=== PATIENT | female | born 1960 | race Caucasian/White ===

== ENCOUNTER 2021-06-15 15:53 | Emergency (ER) | payer MEDICARE, MEDICAID, SELFPAY ==
[2021-06-15 16:13] VITALS: BP 174/96; PULSE 135; RESP 25; TEMP 35.7; O2SAT 98; BMI 28.2
[2021-06-15 17:08] VITALS: BP 149/90; PULSE 104; RESP 20; O2SAT 98
--- NOTE | 2021-06-15 19:12 | ED_ITS ---
HPI - Psych <Yoni Clement DO - Last Filed: 06/17/21 21:15> General Chief Complaint: Psychiatric Symptoms Stated Complaint: hallucinating Time Seen by Provider: 06/15/21 19:12 Source: patient Mode of arrival: Ambulatory History of Present Illness HPI Narrative: 61-year-old female former smoker endorses chronic alcohol abuse, recent use of methamphetamines and a recent fall with head injury. Her daughter states that today she started hallucinating a becoming paranoid and encouraged her to come to the emergency department. On arrival the patient is paranoid with pressured speech and very distrustful. She endorses auditory and visual hallucinations and is afraid people are trying to kill her. She denies any medications or mental health history. She denies any history of alcohol withdrawal. She is initially very resistant to any help from myself or other staff. Review of Systems <Yoni Clement DO - Last Filed: 06/17/21 21:15> Review of Systems Narrative: GENERAL: Denies chills, fatigue, malaise, fever, sweats. HEENT: Denies sinus pain, ear pain, sore throat, difficulty swallowing, dizziness. RESPIRATORY: Denies dyspnea, cough, wheezing, hemoptysis, sputum. CARDIOVASCULAR: Denies chest pain, palpitations, orthopnea, edema, GASTROINTESTINAL: Denies nausea, vomiting, abdominal pain, diarrhea, constipation, melena. : Denies dysuria, frequency, incontinence, hematuria, urinary retention. MUSCULOSKELETAL: denies weakness, joint pain, or bony pain SKIN: Denies rash, skin lesions, or other NEUROLOGIC: See HPI PSYCHIATRIC: See HPI 12 point review of systems is negative except for those stated above Patient History <Yoni Clement DO - Last Filed: 06/17/21 21:15> Social History Smoking Status: Former smoker Smoking Status: Former smoker alcohol intake frequency: 3 or more drinks per day Substance Use Type: methamphetamine Exam <Yoni Clement DO - Last Filed: 06/17/21 21:15> Narrative Exam Narrative: GENERAL: [61] year old patient appears stated age. She is obviously upset and paranoid, pacing, rapid pressured speech, distrustful, lacks insight, unable to be redirected HEAD: Atraumatic. Normocephalic. EYES: Pupils equal round and reactive. Extraocular motions intact. No scleral icterus. No injection or drainage. ENT: Nose without bleeding, purulent drainage. Throat without erythema, tonsillar hypertrophy or exudate. Airway patent. NECK: Trachea midline. Non tender CARDIOVASCULAR: Tachycardic but regular rhythm without murmurs, gallops, or rubs. RESPIRATORY: Clear to auscultation. Breath sounds equal bilaterally. No wheezes, rales, or rhonchi. GASTROINTESTINAL: Abdomen soft, non-tender, nondistended. EXTREMITIES: No edema or joint tenderness. BACK: Nontender without deformity or crepitance. No flank tenderness. NEURO: Cranial nerves 2-12 grossly intact SKIN: No rash or erythema of visible areas Initial Vital Signs Initial Vital Signs: Vital Signs Temperature 96.3 F L 06/15/21 16:13 Pulse Rate 135 H 06/15/21 16:13 Respiratory Rate 25 H 06/15/21 16:13 Blood Pressure 174/96 H 06/15/21 16:13 Pulse Oximetry 98 06/15/21 16:13 <Lorenzo Millard MD - Last Filed: 06/16/21 20:02> Initial Vital Signs Initial Vital Signs: Vital Signs Temperature 96.3 F L 06/15/21 16:13 Pulse Rate 135 H 06/15/21 16:13 Respiratory Rate 25 H 06/15/21 16:13 Blood Pressure 174/96 H 06/15/21 16:13 Pulse Oximetry 98 06/15/21 16:13 <Stephan Toth DO - Last Filed: 06/17/21 11:13> Initial Vital Signs Initial Vital Signs: Vital Signs Temperature 96.3 F L 06/15/21 16:13 Pulse Rate 135 H 06/15/21 16:13 Respiratory Rate 25 H 06/15/21 16:13 Blood Pressure 174/96 H 06/15/21 16:13 Pulse Oximetry 98 06/15/21 16:13 Course <Yoni Clement DO - Last Filed: 06/17/21 21:15> Course Course Narrative: Patient eventually able to be spoken with at the bedside, she agrees to take an olanzapine which helped her significantly. She was able to hold a discussion afterwards and was open to our workup, she states she understands we are trying to help her. 0545 - patient is much more alert. Speaking clearly and walking. She states she is starting to feel a bit shakey and is concerned that she is starting to withdrawl. She denies suicidal or homicidal ideation. She no longer is having visual or auditory hallucinations. She is sorry and regretful. She asked for help with detox and would like to speak with social Work about going to a facility. I asked her about the likelihood that she could be and she laughed, stating that she has not been sexually active in very long time and already went through menopause. When the lab called about the positive urine the certified medication technician states it was a very weakly positive finding if at all. Orders Ordered: Discontinued Medications Sodium Chloride (Normal Saline 0.9%) 1,000 mls @ 1,000 mls/hr IV BOLUS ONE Stop: 06/15/21 21:19 Last Infusion: 06/15/21 22:14 Dose: 0 mls/hr Documented by: Admin: 06/15/21 20:36 Dose: 1,000 mls/hr Documented by: JAME Lorazepam (Lorazepam 0.5 Mg Tablet) 2 mg PO NOW ONE Stop: 06/16/21 05:26 Last Admin: 06/16/21 05:35 Dose: 2 mg Documented by: JJUNTI Olanzapine (Olanzapine Odt 10 Mg Tab) 10 mg PO NOW ONE Stop: 06/15/21 19:19 Last Admin: 06/15/21 20:02 Dose: 10 mg Documented by: FLAKITO Vital Signs Vital signs: Vital Signs - 8 hr 06/17/21 07:46 Pulse Rate 94 H Respiratory Rate 14 Blood Pressure 134/84 Pulse Oximetry 96 <Lorenzo Millard MD - Last Filed: 06/16/21 20:02> Course Course Narrative: Patient eventually able to be spoken with at the bedside, she agrees to take an olanzapine which helped her significantly. She was able to hold a discussion afterwards and was open to our workup, she states she understands we are trying to help her. 0545 - patient is much more alert. Speaking clearly and walking. She states she is starting to feel a bit shakey and is concerned that she is starting to withdrawl. She denies suicidal or homicidal ideation. She no longer is having visual or auditory hallucinations. She is sorry and regretful. She asked for help with detox and would like to speak with social Work about going to a facility. I asked her about the likelihood that she could be and she laughed, stating that she has not been sexually active in very long time and already went through menopause. When the lab called about the positive urine the certified medication technician states it was a very weakly positive finding if at all. I assumed care from Dr. Clement at change of shift. The patient's care was reviewed. I entered the patient shortly after change of shift. She made a of couple remarks that did not correspond with the conversation at tried initiate. She then rolled over went back to sleep. She basically slept for rest of the shift, and was left undisturbed. branch services manager were consulted. There are no beds for alcohol/drug detox immediately available. Care will be transitioned back to Dr. Clement for ongoing care at the next shift. Ari 06/16/21@1999. Orders Ordered: Discontinued Medications Sodium Chloride (Normal Saline 0.9%) 1,000 mls @ 1,000 mls/hr IV BOLUS ONE Stop: 06/15/21 21:19 Last Infusion: 06/15/21 22:14 Dose: 0 mls/hr Documented by: Admin: 06/15/21 20:36 Dose: 1,000 mls/hr Documented by: JAME Lorazepam (Lorazepam 0.5 Mg Tablet) 2 mg PO NOW ONE Stop: 06/16/21 05:26 Last Admin: 06/16/21 05:35 Dose: 2 mg Documented by: DIVINE Olanzapine (Olanzapine Odt 10 Mg Tab) 10 mg PO NOW ONE Stop: 06/15/21 19:19 Last Admin: 06/15/21 20:02 Dose: 10 mg Documented by: FLAKITO Vital Signs Vital signs: Vital Signs - 8 hr 06/17/21 07:46 Pulse Rate 94 H Respiratory Rate 14 Blood Pressure 134/84 Pulse Oximetry 96 <Stephan Toth DO - Last Filed: 06/17/21 11:13> Orders Ordered: Discontinued Medications Sodium Chloride (Normal Saline 0.9%) 1,000 mls @ 1,000 mls/hr IV BOLUS ONE Stop: 06/15/21 21:19 Last Infusion: 06/15/21 22:14 Dose: 0 mls/hr Documented by: Admin: 06/15/21 20:36 Dose: 1,000 mls/hr Documented by: JAME Lorazepam (Lorazepam 0.5 Mg Tablet) 2 mg PO NOW ONE Stop: 06/16/21 05:26 Last Admin: 06/16/21 05:35 Dose: 2 mg Documented by: DIVINE Olanzapine (Olanzapine Odt 10 Mg Tab) 10 mg PO NOW ONE Stop: 06/15/21 19:19 Last Admin: 06/15/21 20:02 Dose: 10 mg Documented by: FLAKITO Vital Signs Vital signs: Vital Signs - 8 hr 06/17/21 07:46 Pulse Rate 94 H Respiratory Rate 14 Blood Pressure 134/84 Pulse Oximetry 96 MDM - Psych <Yoni Clement DO - Last Filed: 06/17/21 21:15> Lab Data Result diagrams: 06/15/21 19:55 06/15/21 19:55 Labs: Lab Results 06/15/21 06/15/21 06/15/21 Range/Units 19:08 19:08 19:08 WBC (4.5-11.0) X10^3/uL RBC (4.0-5.2) X10^6/uL Hgb (12.0-16.0) g/dL Hct (36-46) % MCV (80-100) fL MCH (26-34) PG MCHC (30-36) % RDW (11.6-14.8) % Plt Count (150-400) X10^3/uL Neut % (Auto) (50-75) % Lymph % (Auto) (25-40) % [place] % (Auto) (3-14) % Eos % (Auto) (2-4) % Baso % (Auto) (0-2) % Neut # (Auto) (9591-4492) /uL Lymph # (Auto) (8270-0473) /uL [place] # (Auto) (0-900) /uL Eos # (Auto) (0-450) /uL Baso # (Auto) (0-100) /uL Sodium (137-145) mmol/L Potassium (3.4-5.1) mmol/L Chloride (98-107) mmol/L Carbon Dioxide (22-32) mmol/L BUN (7-17) mg/dL Creatinine (0.52-1.04) mg/dL Estimated GFR (>60) mL/min BUN/Creatinine Ratio (6-22) Glucose (70-100) mg/dL Calcium (8.4-10.2) mg/dL Total Bilirubin (0.2-1.3) mg/dL AST (14-36) IU/L ALT (<35) IU/L Alkaline Phosphatase (38-126) U/L Total Protein (6.3-8.2) g/dL Albumin (3.5-5.0) g/dL Globulin (1.7-4.1) g/dL Albumin/Globulin Ratio (1.0-2.8) TSH (0.47-4.68) uIU/mL Free T4 (0.78-2.19) ng/dL HCG, Quant mIU/mL Urine Color Yellow Urine Appearance Slightly cloudy Urine pH 5.0 (4.5-8.0) Ur Specific [place] >=1.030 H (1.000-1.035) Urine Protein 1+ H (Negative) Urine Glucose (UA) Negative (Negative) g/dL Urine Ketones 2+ H (NEGATIVE) Urine Occult Blood Trace-lysed (Negative) Urine Nitrate Negative (Negative) Urine Bilirubin 2+ H (NEGATIVE) Ur Bilirubin Confirm Negative (Negative) Urine Urobilinogen 1.0 (0.2) E.U./dL Ur Leukocyte Esterase 1+ H (NEGATIVE) Urine RBC 0-1/hpf (0-5/HPF) Urine WBC 5-10/hpf H (0-5/HPF) Ur Squamous Epith Cells 1-5 /hpf (0-5/HPF) Amorphous Sediment 1+ Urine Bacteria Occasional (0-1) (None) Hyaline Casts 1-5/lpf (None) Granular Casts 1-5/lpf (None) Urine Mucus 2+ H (Negative) Ur Culture Indicated? Specimen cultured Urine Test Positive H (Negative) Salicylates (<20) mg/dL U Opiates 300ng/mL cut Negative (Negative) Ur Oxycodone Screen Negative (Negative) Urine Methadone Screen Negative (Negative) Acetaminophen (10-30) ug/mL Ur Barbiturates Screen Negative (Negative) U Tricyclic Antidepress Negative (Negative) Ur Phencyclidine Scrn Negative (Negative) Ur Amphetamines Screen Positive H (Negative) U Methamphetamines Scrn Positive H (Negative) Ur MDMA Scrn (Ecstasy) Negative (Negative) U Benzodiazepines Scrn Negative (Negative) Urine Cocaine Screen Negative (Negative) U Marijuana (THC) Screen Negative (Negative) Ethyl Alcohol ( - 10) mg/dL 06/15/21 06/15/21 06/15/21 Range/Units 19:55 19:55 19:55 WBC 6.0 (4.5-11.0) X10^3/uL RBC 4.84 (4.0-5.2) X10^6/uL Hgb 14.6 (12.0-16.0) g/dL Hct 42.0 (36-46) % MCV 86.8 (80-100) fL MCH 30.2 (26-34) PG MCHC 34.7 (30-36) % RDW 13.4 (11.6-14.8) % Plt Count 305 (150-400) X10^3/uL Neut % (Auto) 70.7 (50-75) % Lymph % (Auto) 20.4 L (25-40) % [place] % (Auto) 7.0 (3-14) % Eos % (Auto) 1.0 L (2-4) % Baso % (Auto) 0.9 (0-2) % Neut # (Auto) 4200 (2946-1495) /uL Lymph # (Auto) 1200 (2804-3758) /uL [place] # (Auto) 400 (0-900) /uL Eos # (Auto) 100 (0-450) /uL Baso # (Auto) 100 (0-100) /uL Sodium 140 (137-145) mmol/L Potassium 4.0 (3.4-5.1) mmol/L Chloride 103 (98-107) mmol/L Carbon Dioxide 21 L (22-32) mmol/L BUN 14 (7-17) mg/dL Creatinine 0.75 (0.52-1.04) mg/dL Estimated GFR > 60.0 (>60) mL/min BUN/Creatinine Ratio 18.7 (6-22) Glucose 93 (70-100) mg/dL Calcium 9.8 (8.4-10.2) mg/dL Total Bilirubin 1.5 H (0.2-1.3) mg/dL AST 49 H (14-36) IU/L ALT 44 H (<35) IU/L Alkaline Phosphatase 65 (38-126) U/L Total Protein 9.3 H (6.3-8.2) g/dL Albumin 5.2 H (3.5-5.0) g/dL Globulin 4.1 (1.7-4.1) g/dL Albumin/Globulin Ratio 1.3 (1.0-2.8) TSH 2.24 (0.47-4.68) uIU/mL Free T4 1.81 (0.78-2.19) ng/dL HCG, Quant 3.9 mIU/mL Urine Color Urine Appearance Urine pH (4.5-8.0) Ur Specific [place] (1.000-1.035) Urine Protein (Negative) Urine Glucose (UA) (Negative) g/dL Urine Ketones (NEGATIVE) Urine Occult Blood (Negative) Urine Nitrate (Negative) Urine Bilirubin (NEGATIVE) Ur Bilirubin Confirm (Negative) Urine Urobilinogen (0.2) E.U./dL Ur Leukocyte Esterase (NEGATIVE) Urine RBC (0-5/HPF) Urine WBC (0-5/HPF) Ur Squamous Epith Cells (0-5/HPF) Amorphous Sediment Urine Bacteria (None) Hyaline Casts (None) Granular Casts (None) Urine Mucus (Negative) Ur Culture Indicated? Urine Test (Negative) Salicylates < 1.0 (<20) mg/dL U Opiates 300ng/mL cut (Negative) Ur Oxycodone Screen (Negative) Urine Methadone Screen (Negative) Acetaminophen < 10 (10-30) ug/mL Ur Barbiturates Screen (Negative) U Tricyclic Antidepress (Negative) Ur Phencyclidine Scrn (Negative) Ur Amphetamines Screen (Negative) U Methamphetamines Scrn (Negative) Ur MDMA Scrn (Ecstasy) (Negative) U Benzodiazepines Scrn (Negative) Urine Cocaine Screen (Negative) U Marijuana (THC) Screen (Negative) Ethyl Alcohol < 10 ( - 10) mg/dL 06/16/21 06/16/21 Range/Units 23:58 23:58 WBC (4.5-11.0) X10^3/uL RBC (4.0-5.2) X10^6/uL Hgb (12.0-16.0) g/dL Hct (36-46) % MCV (80-100) fL MCH (26-34) PG MCHC (30-36) % RDW (11.6-14.8) % Plt Count (150-400) X10^3/uL Neut % (Auto) (50-75) % Lymph % (Auto) (25-40) % [place] % (Auto) (3-14) % Eos % (Auto) (2-4) % Baso % (Auto) (0-2) % Neut # (Auto) (9156-0109) /uL Lymph # (Auto) (9007-7122) /uL [place] # (Auto) (0-900) /uL Eos # (Auto) (0-450) /uL Baso # (Auto) (0-100) /uL Sodium (137-145) mmol/L Potassium (3.4-5.1) mmol/L Chloride (98-107) mmol/L Carbon Dioxide (22-32) mmol/L BUN (7-17) mg/dL Creatinine (0.52-1.04) mg/dL Estimated GFR (>60) mL/min BUN/Creatinine Ratio (6-22) Glucose (70-100) mg/dL Calcium (8.4-10.2) mg/dL Total Bilirubin (0.2-1.3) mg/dL AST (14-36) IU/L ALT (<35) IU/L Alkaline Phosphatase (38-126) U/L Total Protein (6.3-8.2) g/dL Albumin (3.5-5.0) g/dL Globulin (1.7-4.1) g/dL Albumin/Globulin Ratio (1.0-2.8) TSH (0.47-4.68) uIU/mL Free T4 (0.78-2.19) ng/dL HCG, Quant mIU/mL Urine Color Urine Appearance Urine pH (4.5-8.0) Ur Specific [place] (1.000-1.035) Urine Protein (Negative) Urine Glucose (UA) (Negative) g/dL Urine Ketones (NEGATIVE) Urine Occult Blood (Negative) Urine Nitrate (Negative) Urine Bilirubin (NEGATIVE) Ur Bilirubin Confirm Negative (Negative) Urine Urobilinogen (0.2) E.U./dL Ur Leukocyte Esterase (NEGATIVE) Urine RBC None seen (0-5/HPF) Urine WBC 0-1/hpf (0-5/HPF) Ur Squamous Epith Cells 1-5 /hpf (0-5/HPF) Amorphous Sediment Urine Bacteria Occasional (0-1) (None) Hyaline Casts (None) Granular Casts (None) Urine Mucus 3+ H (Negative) Ur Culture Indicated? Specimen cultured Urine Test (Negative) Salicylates (<20) mg/dL U Opiates 300ng/mL cut (Negative) Ur Oxycodone Screen (Negative) Urine Methadone Screen (Negative) Acetaminophen (10-30) ug/mL Ur Barbiturates Screen (Negative) U Tricyclic Antidepress (Negative) Ur Phencyclidine Scrn (Negative) Ur Amphetamines Screen (Negative) U Methamphetamines Scrn (Negative) Ur MDMA Scrn (Ecstasy) (Negative) U Benzodiazepines Scrn (Negative) Urine Cocaine Screen (Negative) U Marijuana (THC) Screen (Negative) Ethyl Alcohol ( - 10) mg/dL Point of Care Testing Test Results Positive Urine Dip Bedside Urine Glucose Negative Bedside Urine Bilirubin + 1 Bedside Urine Ketone +++ 80 Urine Specific [place] 1.030 Bedside Urine Occult Blood - Negative Bedside Urine pH 6.0 Bedside Urine Protein +/- 15 Bedside Urine Urobilinogen +/- 1mg Bedside Urine Nitrite - Negative Bedside Urine Leukocytes - Negative Esterase MDM Narrative Medical decision making narrative: 0436 - patient received back in sign out. She had apparently slept most of the day and did not interact with Dr. Millard. She was awake briefly earlier in this shift, but due to some critical patients I did not speak with her. She is now sleeping again and has been for a few hours. Social work note from yesterday notes that all facilities locally are currently full however, [facility] will accept phone interview on Friday for intake on Friday. <Lorenzo Millard MD - Last Filed: 06/16/21 20:02> Lab Data Labs: Lab Results 06/15/21 06/15/21 06/15/21 Range/Units 19:08 19:08 19:08 WBC (4.5-11.0) X10^3/uL RBC (4.0-5.2) X10^6/uL Hgb (12.0-16.0) g/dL Hct (36-46) % MCV (80-100) fL MCH (26-34) PG MCHC (30-36) % RDW (11.6-14.8) % Plt Count (150-400) X10^3/uL Neut % (Auto) (50-75) % Lymph % (Auto) (25-40) % [place] % (Auto) (3-14) % Eos % (Auto) (2-4) % Baso % (Auto) (0-2) % Neut # (Auto) (6529-0112) /uL Lymph # (Auto) (0643-8946) /uL [place] # (Auto) (0-900) /uL Eos # (Auto) (0-450) /uL Baso # (Auto) (0-100) /uL Sodium (137-145) mmol/L Potassium (3.4-5.1) mmol/L Chloride (98-107) mmol/L Carbon Dioxide (22-32) mmol/L BUN (7-17) mg/dL Creatinine (0.52-1.04) mg/dL Estimated GFR (>60) mL/min BUN/Creatinine Ratio (6-22) Glucose (70-100) mg/dL Calcium (8.4-10.2) mg/dL Total Bilirubin (0.2-1.3) mg/dL AST (14-36) IU/L ALT (<35) IU/L Alkaline Phosphatase (38-126) U/L Total Protein (6.3-8.2) g/dL Albumin (3.5-5.0) g/dL Globulin (1.7-4.1) g/dL Albumin/Globulin Ratio (1.0-2.8) TSH (0.47-4.68) uIU/mL Free T4 (0.78-2.19) ng/dL HCG, Quant mIU/mL Urine Color Yellow Urine Appearance Slightly cloudy Urine pH 5.0 (4.5-8.0) Ur Specific [place] >=1.030 H (1.000-1.035) Urine Protein 1+ H (Negative) Urine Glucose (UA) Negative (Negative) g/dL Urine Ketones 2+ H (NEGATIVE) Urine Occult Blood Trace-lysed (Negative) Urine Nitrate Negative (Negative) Urine Bilirubin 2+ H (NEGATIVE) Ur Bilirubin Confirm Negative (Negative) Urine Urobilinogen 1.0 (0.2) E.U./dL Ur Leukocyte Esterase 1+ H (NEGATIVE) Urine RBC 0-1/hpf (0-5/HPF) Urine WBC 5-10/hpf H (0-5/HPF) Ur Squamous Epith Cells 1-5 /hpf (0-5/HPF) Amorphous Sediment 1+ Urine Bacteria Occasional (0-1) (None) Hyaline Casts 1-5/lpf (None) Granular Casts 1-5/lpf (None) Urine Mucus 2+ H (Negative) Ur Culture Indicated? Specimen cultured Urine Test Positive H (Negative) Salicylates (<20) mg/dL U Opiates 300ng/mL cut Negative (Negative) Ur Oxycodone Screen Negative (Negative) Urine Methadone Screen Negative (Negative) Acetaminophen (10-30) ug/mL Ur Barbiturates Screen Negative (Negative) U Tricyclic Antidepress Negative (Negative) Ur Phencyclidine Scrn Negative (Negative) Ur Amphetamines Screen Positive H (Negative) U Methamphetamines Scrn Positive H (Negative) Ur MDMA Scrn (Ecstasy) Negative (Negative) U Benzodiazepines Scrn Negative (Negative) Urine Cocaine Screen Negative (Negative) U Marijuana (THC) Screen Negative (Negative) Ethyl Alcohol ( - 10) mg/dL 06/15/21 06/15/21 06/15/21 Range/Units 19:55 19:55 19:55 WBC 6.0 (4.5-11.0) X10^3/uL RBC 4.84 (4.0-5.2) X10^6/uL Hgb 14.6 (12.0-16.0) g/dL Hct 42.0 (36-46) % MCV 86.8 (80-100) fL MCH 30.2 (26-34) PG MCHC 34.7 (30-36) % RDW 13.4 (11.6-14.8) % Plt Count 305 (150-400) X10^3/uL Neut % (Auto) 70.7 (50-75) % Lymph % (Auto) 20.4 L (25-40) % [place] % (Auto) 7.0 (3-14) % Eos % (Auto) 1.0 L (2-4) % Baso % (Auto) 0.9 (0-2) % Neut # (Auto) 4200 (0286-6404) /uL Lymph # (Auto) 1200 (2422-5905) /uL [place] # (Auto) 400 (0-900) /uL Eos # (Auto) 100 (0-450) /uL Baso # (Auto) 100 (0-100) /uL Sodium 140 (137-145) mmol/L Potassium 4.0 (3.4-5.1) mmol/L Chloride 103 (98-107) mmol/L Carbon Dioxide 21 L (22-32) mmol/L BUN 14 (7-17) mg/dL Creatinine 0.75 (0.52-1.04) mg/dL Estimated GFR > 60.0 (>60) mL/min BUN/Creatinine Ratio 18.7 (6-22) Glucose 93 (70-100) mg/dL Calcium 9.8 (8.4-10.2) mg/dL Total Bilirubin 1.5 H (0.2-1.3) mg/dL AST 49 H (14-36) IU/L ALT 44 H (<35) IU/L Alkaline Phosphatase 65 (38-126) U/L Total Protein 9.3 H (6.3-8.2) g/dL Albumin 5.2 H (3.5-5.0) g/dL Globulin 4.1 (1.7-4.1) g/dL Albumin/Globulin Ratio 1.3 (1.0-2.8) TSH 2.24 (0.47-4.68) uIU/mL Free T4 1.81 (0.78-2.19) ng/dL HCG, Quant 3.9 mIU/mL Urine Color Urine Appearance Urine pH (4.5-8.0) Ur Specific [place] (1.000-1.035) Urine Protein (Negative) Urine Glucose (UA) (Negative) g/dL Urine Ketones (NEGATIVE) Urine Occult Blood (Negative) Urine Nitrate (Negative) Urine Bilirubin (NEGATIVE) Ur Bilirubin Confirm (Negative) Urine Urobilinogen (0.2) E.U./dL Ur Leukocyte Esterase (NEGATIVE) Urine RBC (0-5/HPF) Urine WBC (0-5/HPF) Ur Squamous Epith Cells (0-5/HPF) Amorphous Sediment Urine Bacteria (None) Hyaline Casts (None) Granular Casts (None) Urine Mucus (Negative) Ur Culture Indicated? Urine Test (Negative) Salicylates < 1.0 (<20) mg/dL U Opiates 300ng/mL cut (Negative) Ur Oxycodone Screen (Negative) Urine Methadone Screen (Negative) Acetaminophen < 10 (10-30) ug/mL Ur Barbiturates Screen (Negative) U Tricyclic Antidepress (Negative) Ur Phencyclidine Scrn (Negative) Ur Amphetamines Screen (Negative) U Methamphetamines Scrn (Negative) Ur MDMA Scrn (Ecstasy) (Negative) U Benzodiazepines Scrn (Negative) Urine Cocaine Screen (Negative) U Marijuana (THC) Screen (Negative) Ethyl Alcohol < 10 ( - 10) mg/dL 06/16/21 06/16/21 Range/Units 23:58 23:58 WBC (4.5-11.0) X10^3/uL RBC (4.0-5.2) X10^6/uL Hgb (12.0-16.0) g/dL Hct (36-46) % MCV (80-100) fL MCH (26-34) PG MCHC (30-36) % RDW (11.6-14.8) % Plt Count (150-400) X10^3/uL Neut % (Auto) (50-75) % Lymph % (Auto) (25-40) % [place] % (Auto) (3-14) % Eos % (Auto) (2-4) % Baso % (Auto) (0-2) % Neut # (Auto) (7859-1855) /uL Lymph # (Auto) (4287-0434) /uL [place] # (Auto) (0-900) /uL Eos # (Auto) (0-450) /uL Baso # (Auto) (0-100) /uL Sodium (137-145) mmol/L Potassium (3.4-5.1) mmol/L Chloride (98-107) mmol/L Carbon Dioxide (22-32) mmol/L BUN (7-17) mg/dL Creatinine (0.52-1.04) mg/dL Estimated GFR (>60) mL/min BUN/Creatinine Ratio (6-22) Glucose (70-100) mg/dL Calcium (8.4-10.2) mg/dL Total Bilirubin (0.2-1.3) mg/dL AST (14-36) IU/L ALT (<35) IU/L Alkaline Phosphatase (38-126) U/L Total Protein (6.3-8.2) g/dL Albumin (3.5-5.0) g/dL Globulin (1.7-4.1) g/dL Albumin/Globulin Ratio (1.0-2.8) TSH (0.47-4.68) uIU/mL Free T4 (0.78-2.19) ng/dL HCG, Quant mIU/mL Urine Color Urine Appearance Urine pH (4.5-8.0) Ur Specific [place] (1.000-1.035) Urine Protein (Negative) Urine Glucose (UA) (Negative) g/dL Urine Ketones (NEGATIVE) Urine Occult Blood (Negative) Urine Nitrate (Negative) Urine Bilirubin (NEGATIVE) Ur Bilirubin Confirm Negative (Negative) Urine Urobilinogen (0.2) E.U./dL Ur Leukocyte Esterase (NEGATIVE) Urine RBC None seen (0-5/HPF) Urine WBC 0-1/hpf (0-5/HPF) Ur Squamous Epith Cells 1-5 /hpf (0-5/HPF) Amorphous Sediment Urine Bacteria Occasional (0-1) (None) Hyaline Casts (None) Granular Casts (None) Urine Mucus 3+ H (Negative) Ur Culture Indicated? Specimen cultured Urine Test (Negative) Salicylates (<20) mg/dL U Opiates 300ng/mL cut (Negative) Ur Oxycodone Screen (Negative) Urine Methadone Screen (Negative) Acetaminophen (10-30) ug/mL Ur Barbiturates Screen (Negative) U Tricyclic Antidepress (Negative) Ur Phencyclidine Scrn (Negative) Ur Amphetamines Screen (Negative) U Methamphetamines Scrn (Negative) Ur MDMA Scrn (Ecstasy) (Negative) U Benzodiazepines Scrn (Negative) Urine Cocaine Screen (Negative) U Marijuana (THC) Screen (Negative) Ethyl Alcohol ( - 10) mg/dL Point of Care Testing Test Results Positive Urine Dip Bedside Urine Glucose Negative Bedside Urine Bilirubin + 1 Bedside Urine Ketone +++ 80 Urine Specific [place] 1.030 Bedside Urine Occult Blood - Negative Bedside Urine pH 6.0 Bedside Urine Protein +/- 15 Bedside Urine Urobilinogen +/- 1mg Bedside Urine Nitrite - Negative Bedside Urine Leukocytes - Negative Esterase <Stephan Toth DO - Last Filed: 06/17/21 11:13> Lab Data Labs: Lab Results 06/15/21 06/15/21 06/15/21 Range/Units 19:08 19:08 19:08 WBC (4.5-11.0) X10^3/uL RBC (4.0-5.2) X10^6/uL Hgb (12.0-16.0) g/dL Hct (36-46) % MCV (80-100) fL MCH (26-34) PG MCHC (30-36) % RDW (11.6-14.8) % Plt Count (150-400) X10^3/uL Neut % (Auto) (50-75) % Lymph % (Auto) (25-40) % [place] % (Auto) (3-14) % Eos % (Auto) (2-4) % Baso % (Auto) (0-2) % Neut # (Auto) (2802-7908) /uL Lymph # (Auto) (5483-2834) /uL [place] # (Auto) (0-900) /uL Eos # (Auto) (0-450) /uL Baso # (Auto) (0-100) /uL Sodium (137-145) mmol/L Potassium (3.4-5.1) mmol/L Chloride (98-107) mmol/L Carbon Dioxide (22-32) mmol/L BUN (7-17) mg/dL Creatinine (0.52-1.04) mg/dL Estimated GFR (>60) mL/min BUN/Creatinine Ratio (6-22) Glucose (70-100) mg/dL Calcium (8.4-10.2) mg/dL Total Bilirubin (0.2-1.3) mg/dL AST (14-36) IU/L ALT (<35) IU/L Alkaline Phosphatase (38-126) U/L Total Protein (6.3-8.2) g/dL Albumin (3.5-5.0) g/dL Globulin (1.7-4.1) g/dL Albumin/Globulin Ratio (1.0-2.8) TSH (0.47-4.68) uIU/mL Free T4 (0.78-2.19) ng/dL HCG, Quant mIU/mL Urine Color Yellow Urine Appearance Slightly cloudy Urine pH 5.0 (4.5-8.0) Ur Specific [place] >=1.030 H (1.000-1.035) Urine Protein 1+ H (Negative) Urine Glucose (UA) Negative (Negative) g/dL Urine Ketones 2+ H (NEGATIVE) Urine Occult Blood Trace-lysed (Negative) Urine Nitrate Negative (Negative) Urine Bilirubin 2+ H (NEGATIVE) Ur Bilirubin Confirm Negative (Negative) Urine Urobilinogen 1.0 (0.2) E.U./dL Ur Leukocyte Esterase 1+ H (NEGATIVE) Urine RBC 0-1/hpf (0-5/HPF) Urine WBC 5-10/hpf H (0-5/HPF) Ur Squamous Epith Cells 1-5 /hpf (0-5/HPF) Amorphous Sediment 1+ Urine Bacteria Occasional (0-1) (None) Hyaline Casts 1-5/lpf (None) Granular Casts 1-5/lpf (None) Urine Mucus 2+ H (Negative) Ur Culture Indicated? Specimen cultured Urine Test Positive H (Negative) Salicylates (<20) mg/dL U Opiates 300ng/mL cut Negative (Negative) Ur Oxycodone Screen Negative (Negative) Urine Methadone Screen Negative (Negative) Acetaminophen (10-30) ug/mL Ur Barbiturates Screen Negative (Negative) U Tricyclic Antidepress Negative (Negative) Ur Phencyclidine Scrn Negative (Negative) Ur Amphetamines Screen Positive H (Negative) U Methamphetamines Scrn Positive H (Negative) Ur MDMA Scrn (Ecstasy) Negative (Negative) U Benzodiazepines Scrn Negative (Negative) Urine Cocaine Screen Negative (Negative) U Marijuana (THC) Screen Negative (Negative) Ethyl Alcohol ( - 10) mg/dL 06/15/21 06/15/21 06/15/21 Range/Units 19:55 19:55 19:55 WBC 6.0 (4.5-11.0) X10^3/uL RBC 4.84 (4.0-5.2) X10^6/uL Hgb 14.6 (12.0-16.0) g/dL Hct 42.0 (36-46) % MCV 86.8 (80-100) fL MCH 30.2 (26-34) PG MCHC 34.7 (30-36) % RDW 13.4 (11.6-14.8) % Plt Count 305 (150-400) X10^3/uL Neut % (Auto) 70.7 (50-75) % Lymph % (Auto) 20.4 L (25-40) % [place] % (Auto) 7.0 (3-14) % Eos % (Auto) 1.0 L (2-4) % Baso % (Auto) 0.9 (0-2) % Neut # (Auto) 4200 (9711-9537) /uL Lymph # (Auto) 1200 (0038-5682) /uL [place] # (Auto) 400 (0-900) /uL Eos # (Auto) 100 (0-450) /uL Baso # (Auto) 100 (0-100) /uL Sodium 140 (137-145) mmol/L Potassium 4.0 (3.4-5.1) mmol/L Chloride 103 (98-107) mmol/L Carbon Dioxide 21 L (22-32) mmol/L BUN 14 (7-17) mg/dL Creatinine 0.75 (0.52-1.04) mg/dL Estimated GFR > 60.0 (>60) mL/min BUN/Creatinine Ratio 18.7 (6-22) Glucose 93 (70-100) mg/dL Calcium 9.8 (8.4-10.2) mg/dL Total Bilirubin 1.5 H (0.2-1.3) mg/dL AST 49 H (14-36) IU/L ALT 44 H (<35) IU/L Alkaline Phosphatase 65 (38-126) U/L Total Protein 9.3 H (6.3-8.2) g/dL Albumin 5.2 H (3.5-5.0) g/dL Globulin 4.1 (1.7-4.1) g/dL Albumin/Globulin Ratio 1.3 (1.0-2.8) TSH 2.24 (0.47-4.68) uIU/mL Free T4 1.81 (0.78-2.19) ng/dL HCG, Quant 3.9 mIU/mL Urine Color Urine Appearance Urine pH (4.5-8.0) Ur Specific [place] (1.000-1.035) Urine Protein (Negative) Urine Glucose (UA) (Negative) g/dL Urine Ketones (NEGATIVE) Urine Occult Blood (Negative) Urine Nitrate (Negative) Urine Bilirubin (NEGATIVE) Ur Bilirubin Confirm (Negative) Urine Urobilinogen (0.2) E.U./dL Ur Leukocyte Esterase (NEGATIVE) Urine RBC (0-5/HPF) Urine WBC (0-5/HPF) Ur Squamous Epith Cells (0-5/HPF) Amorphous Sediment Urine Bacteria (None) Hyaline Casts (None) Granular Casts (None) Urine Mucus (Negative) Ur Culture Indicated? Urine Test (Negative) Salicylates < 1.0 (<20) mg/dL U Opiates 300ng/mL cut (Negative) Ur Oxycodone Screen (Negative) Urine Methadone Screen (Negative) Acetaminophen < 10 (10-30) ug/mL Ur Barbiturates Screen (Negative) U Tricyclic Antidepress (Negative) Ur Phencyclidine Scrn (Negative) Ur Amphetamines Screen (Negative) U Methamphetamines Scrn (Negative) Ur MDMA Scrn (Ecstasy) (Negative) U Benzodiazepines Scrn (Negative) Urine Cocaine Screen (Negative) U Marijuana (THC) Screen (Negative) Ethyl Alcohol < 10 ( - 10) mg/dL 06/16/21 06/16/21 Range/Units 23:58 23:58 WBC (4.5-11.0) X10^3/uL RBC (4.0-5.2) X10^6/uL Hgb (12.0-16.0) g/dL Hct (36-46) % MCV (80-100) fL MCH (26-34) PG MCHC (30-36) % RDW (11.6-14.8) % Plt Count (150-400) X10^3/uL Neut % (Auto) (50-75) % Lymph % (Auto) (25-40) % [place] % (Auto) (3-14) % Eos % (Auto) (2-4) % Baso % (Auto) (0-2) % Neut # (Auto) (1632-2736) /uL Lymph # (Auto) (4432-6529) /uL [place] # (Auto) (0-900) /uL Eos # (Auto) (0-450) /uL Baso # (Auto) (0-100) /uL Sodium (137-145) mmol/L Potassium (3.4-5.1) mmol/L Chloride (98-107) mmol/L Carbon Dioxide (22-32) mmol/L BUN (7-17) mg/dL Creatinine (0.52-1.04) mg/dL Estimated GFR (>60) mL/min BUN/Creatinine Ratio (6-22) Glucose (70-100) mg/dL Calcium (8.4-10.2) mg/dL Total Bilirubin (0.2-1.3) mg/dL AST (14-36) IU/L ALT (<35) IU/L Alkaline Phosphatase (38-126) U/L Total Protein (6.3-8.2) g/dL Albumin (3.5-5.0) g/dL Globulin (1.7-4.1) g/dL Albumin/Globulin Ratio (1.0-2.8) TSH (0.47-4.68) uIU/mL Free T4 (0.78-2.19) ng/dL HCG, Quant mIU/mL Urine Color Urine Appearance Urine pH (4.5-8.0) Ur Specific [place] (1.000-1.035) Urine Protein (Negative) Urine Glucose (UA) (Negative) g/dL Urine Ketones (NEGATIVE) Urine Occult Blood (Negative) Urine Nitrate (Negative) Urine Bilirubin (NEGATIVE) Ur Bilirubin Confirm Negative (Negative) Urine Urobilinogen (0.2) E.U./dL Ur Leukocyte Esterase (NEGATIVE) Urine RBC None seen (0-5/HPF) Urine WBC 0-1/hpf (0-5/HPF) Ur Squamous Epith Cells 1-5 /hpf (0-5/HPF) Amorphous Sediment Urine Bacteria Occasional (0-1) (None) Hyaline Casts (None) Granular Casts (None) Urine Mucus 3+ H (Negative) Ur Culture Indicated? Specimen cultured Urine Test (Negative) Salicylates (<20) mg/dL U Opiates 300ng/mL cut (Negative) Ur Oxycodone Screen (Negative) Urine Methadone Screen (Negative) Acetaminophen (10-30) ug/mL Ur Barbiturates Screen (Negative) U Tricyclic Antidepress (Negative) Ur Phencyclidine Scrn (Negative) Ur Amphetamines Screen (Negative) U Methamphetamines Scrn (Negative) Ur MDMA Scrn (Ecstasy) (Negative) U Benzodiazepines Scrn (Negative) Urine Cocaine Screen (Negative) U Marijuana (THC) Screen (Negative) Ethyl Alcohol ( - 10) mg/dL Point of Care Testing Test Results Positive Urine Dip Bedside Urine Glucose Negative Bedside Urine Bilirubin + 1 Bedside Urine Ketone +++ 80 Urine Specific [place] 1.030 Bedside Urine Occult Blood - Negative Bedside Urine pH 6.0 Bedside Urine Protein +/- 15 Bedside Urine Urobilinogen +/- 1mg Bedside Urine Nitrite - Negative Bedside Urine Leukocytes - Negative Esterase MDM Narrative Medical decision making narrative: 0436 - patient received back in sign out. She had apparently slept most of the day and did not interact with Dr. Millard. She was awake briefly earlier in this shift, but due to some critical patients I did not speak with her. She is now sleeping again and has been for a few hours. Social work note from yesterday notes that all facilities locally are currently full however, [facility] will accept phone interview on Friday for intake on Friday. Dr toth: Received turnover. Reviewed patient's history and physical exam. Patient awaiting placement for voluntary detox for alcohol. I did have a discussion with the patient. She is alert oriented x3. GCS 15. In my opinion has capacity to make decisions. Not clinically intoxicated. Patient states she would like to be discharged home. She states she has a and son at home that she needs to check on. She initially asked for ?medications ?it for use at home however I informed her that it is not my practice to discharge home someone with medications such as benzodiazepine in this situation. Patient states that yesterday she was visiting some friends who ?did some things that I have never done before ?she states that she would never do this again. I suspect that this was the methamphetamine that was in her system which does certainly explain her presenting symptoms. Will discharge patient home with resources for alcohol treatment facilities. She was given return precautions. She expressed understanding and agreement. Discharge Plan Departure Patient Disposition: Home Clinical Impression: Alcohol abuse, Methamphetamine use Instructions: DI for Alcohol Use Disorder Activity Restrictions/Additional Instructions: I do recommend that you use the resources that are provided to help with your alcohol use issues. I also recommend you contact your primary doctor for a follow-up. Return to the emergency department for any new or worsening symp toms.
[2021-06-15 19:14] LABS: Bilirubin Urine UA 2+ (NEGATIVE); Color Urine UA YELLOW; Glucose Urine UA NEGATIVE (Negative); Ketones Urine UA 2+ (NEGATIVE); Leukocyte Esterase Urine UA 1+ (NEGATIVE); Nitrite Urine UA NEGATIVE (Negative); Occult Blood Urine UA TRACE-LYSED (Negative); Protein Urine UA 1+ (Negative); Specific Gravity Urine UA >=1.030 (1.000-1.035)
--- NOTE | 2021-06-15 19:17 | PC.NURSE ---
Pt started to escalate in the szymanski. This COAT CHECKER responded to pt yelling for daughter. This COAT CHECKER tried to console pt and calm her down. Pt was inconsolable. This COAT CHECKER stayed with pt. Nurse attending called pt's daughter and pt spoke with her on the portable phone. Hung up on daughter. This COAT CHECKER was able to get pt to use the bathroom and provide a urine sample. Pt shouted things like 'The doctor is going to euthanize me', 'don't touch me', 'you're going to hurt me', 'I don't trust anyone here', 'you're not going to move me', 'Jacqueline is going to come get me', 'My is my power of divorce attorney', 'Ray is coming to get me'.. This patient repeated these things many times. Pt was able to get ahold of on the phone and this COAT CHECKER spoke with him briefly. , Bogdan, says that 'her (pt) daughter brought her there and I am not able to come because she (daughter) has my car.' While pt was on the phone with , this COAT CHECKER, another COAT CHECKER, and EVS moved pt on her gurney to a room due to her behavior. Pt was shown that she has her own personal bathroom. Pt went to the bathroom to have privacy so this COAT CHECKER cracked main door to room to help pt feel safe with added privacy. While this COAT CHECKER helps another pt, this pt closed door on herself. immediately aware and went to speak with pt. Pt seemed manic and still inconsolable. Upon leaving, the doctor also closed the door. Pt at the door yelling to passerby's and door remains closed for safety of herself, staff, and other patients.
[2021-06-15 19:23] LABS: Appearance Urine UA Slightly Cloudy
[2021-06-15 19:24] LABS: Amorphous Sediment Urine 1+; Bacteria Urine Occasional (0-1); Culture Indicated Urine Specimen Cultured; Granular Casts Urine 1-5/LPF; Hyaline Casts Urine 1-5/LPF; Mucus Urine 2+ (Negative); RBC Urine 0-1/HPF (0-5/HPF); Squamous Epithelial Cell Urine 1-5 /HPF (0-5/HPF); WBC Urine 5-10/HPF (0-5/HPF)
[2021-06-15 19:27] LABS: Ictotest Urine Negative (Negative)
[2021-06-15 19:34] LABS: Pregnancy Test Urine Positive (Negative)
[2021-06-15 19:37] LABS: UR Morphine/Opiate cutoff 300 Negative (Negative); Ur Creatinine Normal (Normal); Ur Specific Gravity Normal (Normal); Urine Amphetamines Positive (Negative); Urine Barbiturates Negative (Negative); Urine Benzodiazepines Negative (Negative); Urine Cocaine Negative (Negative); Urine MDMA Negative (Negative); Urine Methadone Negative (Negative); Urine Methamphetamines Positive (Negative); Urine Oxycodone Negative (Negative); Urine Phencyclidine Negative (Negative); Urine Tetrahydrocannabinol Negative (Negative); Urine Tricyclic Antidepressant Negative (Negative); Urine pH Normal (Normal)
[2021-06-15] MEDS: OLANZapine ODT 10 MG TAB PO (20:02)
--- NOTE | 2021-06-15 20:02 | CM.SWNOTE ---
DITCH TENDER Assessment DITCH TENDER - Screed Person Assessment DITCH TENDER/Screed Person Assessment Time Spent with Patient Start date 06/15/21 Visit Start Time 19:00 End date 06/15/21 Visit End Time 19:45 Total time Care Management spent on Observing pt for 45 min patient visit-in minutes Substance Abuse Screening Include Onset, Duration, Intensity Presenting Problem Patient presents to ED due to concern for hallucinations and paranoia induced by Methamphetamines use. Patient' s BAL level has not yet been drawn due to patient's paranoia of being poisoned and getting an IV done. Precipitating Event(s) It was reported in triage that patient did lines of methamphetamine earlier this week. Patient Strengths Patient is able to be consoled and redirected Current Behavioral Health Provider(s) Unknown at this time Include Facility, Provider, Ph. # Family Hx of Behavioral Abuse Unknown at this time Rehab Facilities? ((Date(s), Location(s) Unknown at this time ) History of Withdrawal? Seizures? Unknown at this time. Patient presents with paranoia and reported visual hallucinations and concern her head is going to explode. Longest Period of Sobriety Unknown at this time Psychosocial information & Support Patient is 61 y/o female who Systems resides in [place], [place] in [facility]. Patient has s/o and daughter as support. Patient endorses that her s/o is her DPOA. School/Work Unknown Legal Concerns Legal Matters - Outstanding Issues Unknown Mental Status Orientation (Person/Place/Time) A/O to person, self and location Stated Mood scared Affect (Congruent with Mood?) Anxious, Euphoric, labile, congruent with mood. Thought Content - Specify/Describe Patient presents with acute Obsessions, Delusions, Hallucinations paranoia with concern for being poisoned, shot and killed and the obsession with consulting for medical care with s/o who she reports is her DPOA. Patient is not trusting of most ED staff and is concerned that almost everyone here is out to get her. Patient is anxious and concerned that everyone is laughing and staring at her. Patient yells and screams when RN tries to put in an IV in patient. Thought Processes (Kxmjcmi-Vhqbzlfe-Kaac Disorganized, tangential Sypcwwol-Blbjbqcp-Pcwoupczto- Gvpcujcfghakli-Ouukyti-Daeqxcpamwyu- Thought Blocking) Speech (Aolnjx-Gjnq-Qhcfnzn-Rapid-Soft- rapid/slurred Loud-Pressured) Motor (Ugrkfv-Dkftmbvra-Zutt-Other) excessive. Patient is shaking and cannot stay still. Insight (Upob-Vvnf-Hdzl/Limited) poor/limited Judgement (Ctoe-Bbhy-Mavn/Limited) poor/limited Impulse Control (Adequate-Impaired) impaired Memory (Buxfirkag-Fqalga-Stmjpz, impaired, not formally Impaired-Intact) assessed Concentration (Intact-Impaired) impaired Attention (Intact-Impaired) impaired Behavior (Appropriate-Inappropriate) inappropriate. Patient is disruptive, yelling, screaming , crying with difficulty consoling self. Patient is dependent on one-on-one attention from [employer] broke worker and at times needing both to assist patient. Patient is not wanting DITCH TENDER to look at patient or speak with patient due to acute paranoia. Risk Assessment Suicidal Ideation (Plan) Unknown Homicidal Ideation (Plan) Unknown Comment Patient denies HI and SI in triage. DITCH TENDER is not able to ask patient assessment questions due to patient's distress and paranoia. Intervention Intervention DITCH TENDER observes patient while in hallway and in room 13. Patient presents with acute paranoia and anxiety. Patient' s toxicology screen is positive for Methamphetamines and Amphetamines. Patient's BAL is pending at this time. Patient was brought in by daughter due to patient's increasing paranoia. Patient requests to speak with s/o and daughter on the phone who encourage patient to stay at the hospital. Patient continues to repeat concern for being poisoned, harmed, taken away, shot or put in danger. Patient is able to build rapport and trust with [employer] and RN but has not been able to conduct conversation and rapport with anyone else. Patient presents with some erratic and inconsolable behaviors. It is the opinion of this DITCH TENDER that at this time patient is not safe for d/c. Patient to receive further ED medical evaluation from ED provider Dr. Clement. Perhaps patient would benefit from transfer to detox facility. Plan RA Plan Patient to be medically evaluated by ED provider PAULINO Samayoa
[2021-06-15 20:09] LABS: Add Manual Diff / Slide Review NO; Basophils Absolute Auto 100 /uL (0-100); Basophils Percent Auto 0.9 % (0-2); Eosinophils Absolute Auto 100 /uL (0-450); Hemoglobin 14.6 g/dL (12.0-16.0); Lymphocytes Absolute Auto 1200 /uL (1100-4500); Lymphocytes Percent Auto 20.4 % (25-40); Mean Corpuscular HGB Conc 34.7 % (30-36); Mean Corpuscular Hemoglobin 30.2 PG (26-34); Mean Corpuscular Volume 86.8 fL (80-100); Monocytes Absolute Auto 400 /uL (0-900); Neutrophils Absolute Auto 4200 /uL (1500-7000); Neutrophils Percent Auto 70.7 % (50-75); Platelet Count 305 X10^3/uL (150-400); Red Blood Cell Count 4.84 X10^6/uL (4.0-5.2); Red Cell Distribution Width 13.4 % (11.6-14.8)
--- NOTE | 2021-06-15 20:20 | DI.CT.S_ITS ---
PROCEDURE: CT HEAD/BRAIN WO CON INDICATIONS: altered, recent fall with head injury, chronic alcohol TECHNIQUE: Noncontrast 4.5 mm thick angled axial sections acquired from the foramen magnum to the vertex, with coronal and sagittal reformats. For radiation dose reduction, the following was used: automated exposure control, adjustment of mA and/or kV according to patient size. COMPARISON: None. FINDINGS: Image quality: Excellent. CSF spaces: Basal cisterns are patent. No extra-axial fluid collections. Ventricles are normal in size and shape. Brain: No intracranial hemorrhage, mass, or mass effect. Rodriguez-white matter interface appears preserved. Skull and face: Calvarium and visualized facial bones are intact, without suspicious lesions. Sinuses: Visualized sinuses demonstrate mild mucosal thickening within the ethmoid and left maxillary sinuses. Mastoid air cells are clear. IMPRESSION: 1. No acute intracranial abnormality. 2. Mild sinus mucosal disease. Dictated by: Carlito Bill M.D. on 06/15/2021 at 22:04 Approved by: Carlito Bill M.D. on 06/15/2021 at 22:06
[2021-06-15 20:29] LABS: Acetaminophen < 10 ug/mL (10-30); Alanine Aminotransferase 44 IU/L (<35); Albumin 5.2 g/dL (3.5-5.0); Albumin Globulin Ratio 1.3 (1.0-2.8); Alkaline Phosphatase 65 U/L (38-126); Aspartate Aminotransferase 49 IU/L (14-36); BUN Creatinine Ratio 18.7 (6-22); Bilirubin Total 1.5 mg/dL (0.2-1.3); Blood Urea Nitrogen 14 mg/dL (7-17); Calcium 9.8 mg/dL (8.4-10.2); Carbon Dioxide 21 mmol/L (22-32); Chloride 103 mmol/L (98-107); Estimated Glomerular Filt Rate > 60.0 mL/min (>60); Ethanol (ETOH) < 10 mg/dL; Globulin 4.1 g/dL (1.7-4.1); Glucose 93 mg/dL (70-100); HEMOLYSIS < 15 (0-50); Salicylate < 1.0 mg/dL (<20); Sodium 140 mmol/L (137-145); Total Protein 9.3 g/dL (6.3-8.2)
[2021-06-15] MEDS: SODIUM CHLORIDE 0.9% 1,000 ML 1000 ML IV (20:36)
[2021-06-15 20:45] LABS: HCG Quantitative /Beta subunit 3.9 mIU/mL
[2021-06-15 21:04] LABS: Free T4, Direct Thyroxine 1.81 ng/dL (0.78-2.19)
[2021-06-15 21:14] LABS: Thyroid Stimulating Hormone 2.24 uIU/mL (0.47-4.68)
--- NOTE | 2021-06-15 23:55 | PC.NURSE ---
assumed care of pt who is sleeping in bed NAD respirations even and non labored
--- NOTE | 2021-06-16 03:02 | PC.NURSE ---
pt continues to sleep NAD, resting peacefully
[2021-06-16 04:40] VITALS: PULSE 92; RESP 20
--- NOTE | 2021-06-16 04:58 | PC.NURSE ---
pt has woken up and asked for some food, food provided, phone provided to call her . pt calm cooperative and pleasant
[2021-06-16] MEDS: LORazepam 0.5 MG TABLET 2 MG PO (05:35)
--- NOTE | 2021-06-16 05:35 | PC.NURSE ---
pt expressed feelings of ETOH withdrawl CIWA score was 9 provider notified and ativan given
--- NOTE | 2021-06-16 06:22 | PC.NURSE ---
pt has begun to rest in bed again
[2021-06-16 12:33] VITALS: BP 131/81; PULSE 88; O2SAT 98
--- NOTE | 2021-06-16 13:14 | PC.NURSE ---
daughter called for an update on patient. told her mother has been sleeping all day and that we are waiting for a bed to open up in a treatment facility. she requests her mother call her on her 's phone when she wakes up.
--- NOTE | 2021-06-16 15:47 | CM.SWNOTE ---
Detox Attempted following detox facilities per patient's request Detox 3..22 [facility] Full today [facility] Full [place] option 5 [facility] Not taking new referrals until Friday, however, you can call Friday to complete a phone interview for a potential slot Friday [facility] Detox Full today [place]
--- NOTE | 2021-06-16 19:33 | PC.NURSE ---
Patient slept for greater part of the day. Vitals obtained and respirations have been monitored. Patient has awoken and offered a shower. Patient now in room speaking on the phone with family and eating a meal. Water given. Patient alert, cooperative, and pleasant.
--- NOTE | 2021-06-16 22:17 | PC.NURSE ---
pt continues to sleep respirations even and non labored
[2021-06-16 23:01] VITALS: BP 124/73; PULSE 101; O2SAT 93
[2021-06-17 00:07] LABS: Ictotest Urine Negative (Negative)
[2021-06-17 00:22] LABS: RBC Urine None Seen (0-5/HPF); Squamous Epithelial Cell Urine 1-5 /HPF (0-5/HPF); WBC Urine 0-1/HPF (0-5/HPF)
[2021-06-17 00:23] LABS: Bacteria Urine Occasional (0-1); Culture Indicated Urine Specimen Cultured; Mucus Urine 3+ (Negative)
--- NOTE | 2021-06-17 00:56 | PC.NURSE ---
pt continues to sleep, NAD respirations even and non labored
--- NOTE | 2021-06-17 04:46 | PC.NURSE ---
pt continues to sleep respirations even and unlabored
[2021-06-17 07:46] VITALS: BP 134/84; PULSE 94; RESP 14; O2SAT 96
--- NOTE | 2021-06-17 10:55 | PC.NURSE ---
patient is requesting to go home with a prescription. Provider aware.
--- NOTE | 2021-06-17 11:00 | PC.NURSE ---
patient is tearful about the news that she will not be given a prescription and sent home as per Dr. Dunlap.
[2021-06-17 12:06] VITALS: BP 141/81; PULSE 95; RESP 18; O2SAT 95
== END 2021-06-17 12:08 | disposition home or self-care (01) ==
PROVIDERS: Emergency Medicine; Emergency Provider Emergency Medicine
DX: F10.10 Alcohol abuse, uncomplicated (principal); F15.90 Other stimulant use, unspecified, uncomplicated; R41.82 Altered mental status, unspecified; W18.30XA Fall on same level, unspecified, initial encounter; Y90.0 Blood alcohol level of less than 20 mg/100 ml
CPT/HCPCS: 36415; 70450; 80053; 80305; 80320; 80329; 81001; 81003; 81015; 81025; 84439; 84443; 84702; 85025; 87086; 99284; G0480